=== PATIENT | female | born 1990 | race Caucasian/White ===

== ENCOUNTER 2017-06-07 19:01 | Emergency (ER) | payer BC, OTHER ==
--- NOTE | 2017-06-07 19:14 | PDOC ---
History of Present Illness - General History Source: Patient Exam Limitations: No Limitations - History of Present Illness Initial Comments: 06/07/17 19:41 The patient is a 27 year old female, with significant past medical history of asthma, who presents to the emergency room with 2 days of left calf pain. The patient states that she had what felt like a muscle cramp in her left leg last night while sleeping and the pain has not subsided. When she woke up this morning she was limping secondary to the pain. She describes an aching, tight, and uncomfortable pain that is exacerbated when ambulating. She took a muscle relaxant at home with mild relief. 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 Over the past 3 weeks she has experienced a throbbing pain from her knees to her feet bilaterally. She states that she usually wears compression socks when working and standing all day; however, has not worn them for the past 3 weeks because it is too hot. She visited an Urgent Care today, who sent her to the ER to rule out DVT. She notes that she has a Nuva ring contraceptive insert. Denies SOB, cough. Denies abdominal pain. Denies fever, chills, nausea, vomitng. Allergies: codeine Social Hx: tobacco use (1ppd). PCP: none <Beatriz Fish - Last Filed: 06/07/17 21:45> <Evelin Ji - Last Filed: 06/08/17 02:23> - General Chief Complaint: Pain, Acute Stated Complaint: PAIN LEFT LEG Time Seen by Provider: 06/07/17 19:12 Past History <Beatriz Fish - Last Filed: 06/07/17 21:45> - Past Medical History Asthma: Yes - Psycho/Social/Smoking Cessation Hx Anxiety: No Suicidal Ideation: No Smoking History: Current every day smoker Have you smoked in the past 12 months: Yes Number of Cigarettes Smoked Daily: 20 'Breaking Loose' booklet given: 11/12/15 Hx Alcohol Use: Yes (WEEKENDS) Drug/Substance Use Hx: No Substance Use Type: None <Evelin Ji - Last Filed: 06/08/17 02:23> - Past Medical History Allergies/Adverse Reactions: Allergies Allergy/AdvReac Type Severity Reaction Status Date / Time codeine AdvReac Verified 11/12/15 19:31 Home Medications: Ambulatory Orders Budesonide/Formeterol Fumarate [SYMBICORT 160/4.5mcg -] 1 inh PO BID 11/12/15 Review of Systems - Review of Systems Able to Perform ROS?: Yes Comments:: 06/07/17 19:44 CONSTITUTIONAL: Absent: fever, no chills, no fatigue EYES: Absent: visual changes ENT: Absent: ear pain, no sore throat CARDIOVASCULAR: Absent: chest pain, no palpitations RESPIRATORY: Absent: cough, no SOB GI: Absent: abdominal pain, no nausea, no vomiting, no constipation, no diarrhea GENITOURINARY: Absent: dysuria, no frequency, no hematuria MUSCULOSKELETAL: Present: left calf pain and swelling. Absent: back pain SKIN: Absent: rash NEURO: Absent: headache <Beatriz Fish - Last Filed: 06/07/17 21:45> *Physical Exam - Vital Signs Last Vital Signs Temp Pulse Resp BP Pulse Ox 98 F 98 H 18 140/91 98 06/07/17 19:11 06/07/17 19:11 06/07/17 19:11 06/07/17 19:11 06/07/17 19:11 - Physical Exam Comments: 06/07/17 19:49 GENERAL: The patient is awake, alert, and fully oriented, in no acute distress. HEAD: Normal with no signs of trauma. LUNGS: Breath sounds equal, clear to auscultation bilaterally. No wheeze/ crackles. HEART: Regular rate and rhythm, normal S1 and S2 without murmur or rub. ABDOMEN: Soft/nontender/nondistended. BS wnl. No guarding or rebound. No palpable masses. No hepatosplenomegaly. EXTREMITIES: Mild tenderness of the proximal left lower leg. Minimal edema. No erythema or increased warmth to touch. No palpable cords. No popliteal masses. Distal extremity warm and dry with excellent capillary refill. The rest of the extremities exam was normal. NEUROLOGICAL: Cranial nerves II through XII grossly intact. Normal speech, normal gait. PSYCH: Normal mood, normal affect. SKIN: Warm, Dry, normal turgor, no rashes or lesions noted. <Beatriz Fish - Last Filed: 06/07/17 21:45> ED Treatment Course - RADIOLOGY Radiograph Interpretation: 06/07/17 21:45 EXAM: VENOUS DUPLEX UNILATERAL No evidence for DVT left lower extremity. Left lower leg soft tissues similar to right lower leg, without obvious edema. THIS DOCUMENT HAS BEEN ELECTRONICALLY SIGNED Geneva Woods M.D. <Beatriz Fsih - Last Filed: 06/07/17 21:45> Medical Decision Making - Medical Decision Making Documentation has been prepared under my direction and personally reviewed by me in its entirety. I attest that this documented accurately reflects all work, treatment, procedures and medical decision making performed by me. As noted above, this 27-year-old woman presents with a few day history of left lower leg pain and minimal edema. She was seen in urgent care and referred to the emergency room to rule out DVT. Since patient is a smoker and on oral contraceptives, she does have risk factors for thromboembolic disease. Physical exam as noted above. Doppler duplex ultrasound of the left leg shows no evidence of DVT Results discussed with the patient. Clinical presentation most consistent with gastrocnemius strain/muscle spasm. Patient is urged to drink fluids aggressively during summer heat. She has not had an orthopedic evaluation in many years. She should follow-up with Drs. Echols/Martin (senior net application developer for orthopedics) within the next week. She should return to the emergency room if her symptoms worsen <Evelin Ji - Last Filed: 06/08/17 02:23> *DC/Admit/Observation/Transfer - Attestations Scribe Attestion: 06/07/17 19:44 Documentation prepared by KAI Rosas, acting as medical recruiter for Evelin Ji MD. <Beatriz Fish - Last Filed: 06/07/17 21:45> <Evelin Ji - Last Filed: 06/08/17 02:23> Diagnosis at time of Disposition: Gastrocnemius strain, left Qualifiers: Encounter type: initial encounter Qualified Code(s): S86.112A - Strain of other muscle(s) and tendon(s) of posterior muscle group at lower leg level, left leg, initial encounter Leg muscle spasm Qualifiers: Laterality: left Qualified Code(s): M62.838 - Other muscle spasm - Discharge Dispostion Disposition: HOME Condition at time of disposition: Stable - Referrals Referrals: Donaldo Echols MD [Staff Physician] - 3 days - Patient Instructions Printed Discharge Instructions: Nocturnal Leg Cramps, Calf Muscle Strain, Smoking Cessation Additional Instructions: Drink plenty of water as discussed [place] wrap during day/elevate left leg for the next 2 days Follow-up with Drs. Echols/Martin (orthopedists) within the next 3-4 days Return to ER if you have worsening pain/swelling acetaminophen/naproxen/ibuprofen as needed
[2017-06-07 19:56] VITALS: BP 140/91; PULSE 98; TEMP 98; BMI 23.6
== END 2017-06-07 22:13 | disposition home or self-care (01) ==
LOC: FER 19:01
DX: S86.112A Strain of other muscle(s) and tendon(s) of posterior muscle group at lower leg level, left leg, initial encounter (principal); M62.838 Other muscle spasm; X58.XXXA Exposure to other specified factors, initial encounter; Y93.89 Activity, other specified; Y92.9 Unspecified place or not applicable; J45.909 Unspecified asthma, uncomplicated; F17.210 Nicotine dependence, cigarettes, uncomplicated
CPT/HCPCS: 93971-TC; 99281-25